=== PATIENT | female | born 1945 | race Two or more races ===

== ENCOUNTER 2024-11-14 02:51 | Emergency (ER) | payer OTHER ==
[~2024-11-14] VITALS: Ht 157.5 cm; Wt 54.4 kg
[2024-11-14] MEDS ORDERED: CHILDREN'S ASPI81 MG (03:14)
[2024-11-14] MEDS ORDERED: AZOR 10-20 MG1 EACH (03:14)
[2024-11-14] MEDS ORDERED: NIFEDIPINE 10 MG CAPSULE PO STA (03:43)
[2024-11-14] MEDS ORDERED: hydrOXYzine PAMOATE 50 MG CAPSULE PO STA (03:44)
[2024-11-14] MEDS ORDERED: NIFEDIPINE 10 MG CAPSULE PO ONE (03:46)
[2024-11-14] MEDS ORDERED: hydrOXYzine PAMOATE 50 MG CAPSULE PO ONE (03:47)
[2024-11-14 05:39] LABS: ALBUMIN 3.9 gm/dL (3.4-5.0); BILIRUBIN TOTAL 1.28 mg/dL (0.3-1.2); CALCIUM 9.3 mg/dL (8.5-10.1); CREATININE SERUM 0.67 mg/dL (0.55-1.02); GFR 84.69; GLOBULINA 3.8 G/DL (2.4-3.5); POTASSIUM 3.89 mEq/L (3.5-5.1); TOTAL PROTEIN 7.7 gm/dL (6.4-8.2)
[2024-11-14 05:56] LABS: BASO % 0.7 % (0.1-1.2); EOS % 2.5 % (0.7-7.0); HEMATOCRIT 39.2 % (34.1-44.9); HEMOGLOBIN 13.5 g/dL (11.2-15.7); LYMPH # 0.76 (1.18-3.74); LYMPH % 18.6 % (19.3-53.1); MEAN CORPUSCULAR HEMOGLOBIN 31.3 pg (25.6-32.2); MONO # 0.37 (0.24-0.82); MONO % 9.1 % (4.7-12.5); NEUT # 2.81 (1.56-6.13); NEUT % 68.9 % (34.0-71.1); PLATELET COUNT 229 K/uL (163-369); RED BLOOD COUNT 4.31 M/uL (3.93-5.22); RED CELL DISTRIBUTION WIDTH 12.8 % (11.6-14.4)
[2024-11-14 06:21] LABS: URINE APPEARANCE Clear; URINE BILIRRUBIN Negative (NEGATIVE); URINE BLOOD Small; URINE COLOR Yellow; URINE GLUCOSE Negative (NEGATIVE); URINE KETONE Negative (NEGATIVE); URINE LEUKOCYTE Negative; URINE NITRATE Negative; URINE PROTEIN Negative (NEGATIVE); URINE UROBILINOGEN 0.2 E.U./dl
[2024-11-14 06:24] LABS: URINE RBC 26.4 uL (0.0-20.8)
[2024-11-14 06:45] LABS: URINE BACTERIA 0 uL (0.0-1933); URINE EPITHELIAL CELLS 0.7 uL (0.0-38.8); URINE WBC 0.7 uL (0.0-23.2)
== END 2024-11-14 08:51 ==
LOC: ER 03:31
PROVIDERS: General Practice
DX: I10 Essential (primary) hypertension (principal); F41.9 Anxiety disorder, unspecified

== ENCOUNTER 2025-05-06 03:36 | Emergency (ER) | payer OTHER ==
[~2025-05-06] VITALS: Ht 154.9 cm; Wt 54.4 kg
[~2025-05-06 03:36] MED LIST: AZOR 10-20 MG1 EACH; CHILDREN'S ASPI81 MG
[2025-05-06] MEDS ORDERED: LABETALOL HCL 100 MG/20 ML ML IV PUSH ONE (04:30)
[2025-05-06] MEDS ORDERED: CLONIDINE HCL 0.1 MG TABLET PO ONE (05:15)
[2025-05-06 06:43] LABS: BASO % 0.6 % (0.1-1.2); EOS # 0.07 (0.04-0.54); EOS % 1.5 % (0.7-7.0); LYMPH # 0.95 (1.18-3.74); LYMPH % 20.1 % (19.3-53.1); MEAN PLATELET VOLUME 10.60 fl (9.4-12.4); MONO # 0.44 (0.24-0.82); MONO % 9.3 % (4.7-12.5); NEUT # 3.21 (1.56-6.13); NEUT % 68.1 % (34.0-71.1); RED CELL DISTRIBUTION WIDTH 13.1 % (11.6-14.4)
[2025-05-06 07:33] LABS: ALT/SGPT 23.0 U/L (12-78); AST/SGOT 26.0 U/L (15-37); BILIRUBIN TOTAL 1.6 mg/dL (0.3-1.2); BUN CREA RATIO 18.0 (7.0-25.0); CREATININE SERUM 0.62 mg/dL (0.55-1.02); GFR 92.38; GLOBULINA 3.3 G/DL (2.4-3.5); GLUCOSE FASTING 125.0 mg/dL (65-100); OSMOLALITY SERUM 284.0 MOSM/KG (275-295)
== END 2025-05-06 09:43 | disposition home or self-care (01) ==
LOC: ER 03:37
PROVIDERS: Preventive Medicine Public Health & General Preventive Medicine
DX: I16.0 Hypertensive urgency (principal); I10 Essential (primary) hypertension
CPT/HCPCS: 36415; 96365; 99282; J3490

== ENCOUNTER 2025-05-10 03:57 | Emergency (ER) | payer OTHER ==
[~2025-05-10] VITALS: Ht 154.9 cm; Wt 54.4 kg
[2025-05-10 06:48] LABS: BASO % 0.8 % (0.1-1.2); EOS # 0.10 (0.04-0.54); EOS % 2.0 % (0.7-7.0); LYMPH # 1.36 (1.18-3.74); LYMPH % 27.6 % (19.3-53.1); MEAN PLATELET VOLUME 10.50 fl (9.4-12.4); MONO # 0.46 (0.24-0.82); MONO % 9.3 % (4.7-12.5); NEUT # 2.97 (1.56-6.13); NEUT % 60.3 % (34.0-71.1); RED CELL DISTRIBUTION WIDTH 13.0 % (11.6-14.4)
[2025-05-10 07:43] LABS: ALT/SGPT 26.0 U/L (12-78); AST/SGOT 28.0 U/L (15-37); BILIRUBIN TOTAL 1.22 mg/dL (0.3-1.2); BUN CREA RATIO 23.0 (7.0-25.0); CREATININE SERUM 0.64 mg/dL (0.55-1.02); GFR 89.06; GLOBULINA 3.1 G/DL (2.4-3.5); GLUCOSE FASTING 109.0 mg/dL (65-100); OSMOLALITY SERUM 283.0 MOSM/KG (275-295)
[2025-05-10] MEDS ORDERED: NIFEDIPINE10 MG PO (09:33)
== END 2025-05-10 10:04 ==
LOC: ER 03:57
PROVIDERS: General Practice
DX: I10 Essential (primary) hypertension (principal)